=== PATIENT | male | born 1980 | race African-American/Black ===

== ENCOUNTER 2021-10-24 14:10 | Emergency (ER) | payer OTHER, MEDICAID, SELFPAY ==
[2021-10-24 14:18] VITALS: BP 127/77; PULSE 67; RESP 14; TEMP 36.5; O2SAT 99; BMI 23.1
[2021-10-24] MEDS: LIDOCAINE 1% W/EPI 1 ML SUBCUT (14:32)
--- NOTE | 2021-10-24 14:42 | ED.SKABFB ---
HPI - Skin/Abscess/Foreign Bdy General Chief complaint: Skin/Abscess/Foreign Body Stated complaint: Abscess on face Time Seen by Provider: 10/24/21 14:15 Source: patient Mode of arrival: Ambulatory Limitations: no limitations History of Present Illness HPI narrative: 41M nonsmoker with noncontributory medical history presents with his significant other and a chief complaint of a painful swollen lesion on the left side of his face for the past few days. He denies any fever chills. He denies any dental issues, trauma or injury. He denies systemic findings such as fever, chills nor nausea or vomiting. He states he has not poked or pressed it nor attempted to express any of the purulent discharge. He has had prior skin infections but never sought treatment. Related Data Previous Rx's Medication Instructions Recorded doxycycline hyclate 100 mg tablet 100 mg PO BID #20 tab 10/24/21 Allergies Allergy/AdvReac Type Severity Reaction Status Date / Time No Known Drug Allergies Allergy Verified 10/24/21 14:24 Review of Systems Review of Systems Narrative: GENERAL: Denies chills, fatigue, malaise, fever, sweats. HEENT: Denies sinus pain, ear pain, sore throat, difficulty swallowing, dizziness. RESPIRATORY: Denies dyspnea, cough, wheezing, hemoptysis, sputum. CARDIOVASCULAR: Denies chest pain, palpitations, orthopnea, edema, GASTROINTESTINAL: Denies nausea, vomiting, abdominal pain, diarrhea, constipation, melena. : Denies dysuria, frequency, incontinence, hematuria, urinary retention. MUSCULOSKELETAL: denies weakness, joint pain, or bony pain SKIN: See HPI NEUROLOGIC: Denies weakness, headache, numbness, change in speech, confusion, seizures, incoordination. PSYCHIATRIC: No concerning psychosocial issues. 12 point review of systems is negative except for those stated above Patient History Social History Smoking Status: Unknown if ever smoked Smoking Status: Unknown if ever smoked alcohol intake frequency: holidays/special occasions only Substance Use Type: marijuana Exam Narrative Exam Narrative: GEN: AOx3 and in mild distress EYES: Pupils are equal, round, and reactive to light and accommodation. Extraoccular muscles are intact bilaterally. There is no subconjunctival hemorrhage or exudate. CHEST: Lungs are clear to auscultation bilaterally and free of wheezes, rales, or rhonchi. Heart rate is regular rhythm, there are no murmurs, clicks, rubs, or gallops. There is no chest wall tenderness. ABD: Abdomen is soft and nontender. There is no guarding or rebound. Bowel sounds are normal in all 4 quadrants. There is no mass or organomegaly. EXT: Full painless ROM of all extremities with no loss of sensation or strength. SKIN: 2 x 2 cm cutaneous abscess on left side of face with central purulence core, fluctuance and minimal surrounding induration and erythema. Initial Vital Signs Initial Vital Signs: Vital Signs Temperature 97.7 F 10/24/21 14:18 Pulse Rate 67 10/24/21 14:18 Respiratory Rate 14 10/24/21 14:18 Blood Pressure 127/77 10/24/21 14:18 Pulse Oximetry 99 10/24/21 14:18 Procedures Abscess I/D I&D #1: Site: face Side (if applicable): left Local Anesthetic: lidocaine 1% and with epi Amount of anesthesia used (mL): 3 Technique: incised with #11 blade Amount of fluid expressed (mL): 3 Irrigation: No Packing used?: none Course Orders Ordered: ED Orders 10/24/21 14:18 Wound Culture and Gram Stain Stat Discontinued Medications Lidocaine/Epinephrine (Lidocaine 1% W/Epi) 1 ml SUBCUT NOW ONE Stop: 10/24/21 14:19 Last Admin: 10/24/21 14:32 Dose: 1 ml Documented by: ELISABET Vital Signs Vital signs: Vital Signs - 8 hr 10/24/21 14:18 Temperature 97.7 F Pulse Rate 67 Respiratory Rate 14 Blood Pressure 127/77 Pulse Oximetry 99 Discharge Plan Departure Patient Disposition: Home Clinical Impression: Abscess of face Instructions: DI for Skin Abscess Activity Restrictions/Additional Instructions: *You have been diagnosed with [facial abscess with minimal surrounding cellulitis *What to do: *Please continue to take your regular medications as directed. [x ] New medication prescriptions sent to your pharmacy: [[facility]] [ ] New medication written as a paper prescription [ ] No new medications given *Please follow up with your primary care provider in 2-3 days, call for an appointment. Let them know you were seen in the Emergency Department and that we ask that you be seen in follow up. We will electronically transmit a record of today's note if your PCP is in our system *If you do not have a primary care provider please contact the [facility] Resource line at [phone]. They will ask some questions about your medical history and help get you set up with a doctor in the community. *Return to Emergency Department if you should have any new, worsening or concerning symptoms, such as [fever greater than 101 F, shaking chills, worsening pain, persistent vomiting or other bothersome symptoms] Prescriptions: New doxycycline hyclate 100 mg tablet 100 mg PO BID Qty: 20 0RF
--- NOTE | 2021-10-24 14:47 | PC.NURSE ---
Assisted Dr. Dutta with abscess I&D, patient tolerated procedure well.
== END 2021-10-24 14:49 | disposition home or self-care (01) ==
PROVIDERS: Emergency Provider Emergency Medicine
DX: L02.01 Cutaneous abscess of face (principal)
CPT/HCPCS: 10060; 99281